=== PATIENT | male | born 1955 | race Caucasian/White ===

== ENCOUNTER 2018-03-12 06:57 | Day surgery (SDC) | payer OTHER | END 2018-03-12 12:00 | disposition home or self-care (01) | LOC: AMB-ENDOS 06:57 | DX: D12.3 Benign neoplasm of transverse colon (principal) ==

== ENCOUNTER 2018-08-16 11:40 | Inpatient (IN) | payer OTHER ==
[~2018-08-16] VITALS: Ht 154.9 cm; Wt 54.4 kg
[2018-09-06] MEDS ORDERED: NOVOLOG (11:02)
[2018-09-11] MEDS ORDERED: NOVOLOG100 UNIT/1 SUBCUTANEO (11:11)
[2018-09-16] MEDS ORDERED: PERCOCET 5-3251 EACH PO (14:54)
[2018-09-16] MEDS ORDERED: INTESTINEX680 M1 PO (14:54)
[2018-09-16] MEDS ORDERED: OMEPRAZOLE20 MG PO (14:54)
== END 2018-09-16 15:46 | disposition home or self-care (01) | DRG 330 ==
LOC: SURH 09-06 07:00 → O/R 09-07 08:18 → SURH 09-07 15:00
PROVIDERS: ADMIT Surgery
PROC: 0DQB4ZZ Repair Ileum, Percutaneous Endoscopic Approach (ICD-10-PCS; principal; 2018-09-07 09:00)
PROC: BW21ZZZ Computerized Tomography (CT Scan) of Abdomen and Pelvis (ICD-10-PCS; 2018-09-13)
DX: Z43.2 Encounter for attention to ileostomy (principal); C20 Malignant neoplasm of rectum; J90 Pleural effusion, not elsewhere classified; J98.11 Atelectasis; D62 Acute posthemorrhagic anemia; E11.9 Type 2 diabetes mellitus without complications; K80.80 Other cholelithiasis without obstruction